=== PATIENT | female | born 1985 | race Caucasian/White ===

== ENCOUNTER 2017-02-04 02:00 | Inpatient (IN) | payer BC ==
[2017-02-04] MEDS ORDERED: OXYTOCIN 10 UNIT/ML 1 ML VIAL IM PRN (03:22)
[2017-02-04] MEDS ORDERED: LIDOCAINE 1% (PF) 10 MG/ML (30 ML SDV) SQ PRN (03:22)
[2017-02-04] MEDS ORDERED: TERBUTALINE 1 MG/ML VIAL SQ PRN (03:22)
[2017-02-04] MEDS ORDERED: METHYLERGONOVINE 0.2 MG/ML 1 ML AMP IM PRN (03:22)
[2017-02-04] MEDS ORDERED: CARBOPROST TROMETHAMINE 250 MCG/ML 1 ML AMP IM PRN (03:22)
[2017-02-04] MEDS: LACTATED RINGERS 1,000 ML IV SCH ×2 (03:38→04:07)
[2017-02-04 03:49] LABS: Basophils # (A) 0.1 k/uL (0-0.2); Basophils % (A) 0 %; CH 32.7; CHCM 35.9; Eosinophils # (A) 0.1 k/uL (0-0.7); Eosinophils % (A) 1 %; HCT 34.2 % (34.0-46.0); HDW 2.84; HGB 12.2 gm/dL (11.4-16.0); Large Platelets Flag Slight; Luc # (Auto) 0.18; Luc % (Auto) 1; Lymphocytes # (A) 1.3 k/uL (1.0-4.8); Lymphocytes % (A) 9 %; MCH 32.5 pg (25.0-35.0); MCHC 35.6 g/dL (31.0-37.0); MCV 91.4 fL (80.0-100.0); Mean Platelet Volume 11.1; Monocytes # (A) 0.7 k/uL (0-1.0); Monocytes % (A) 5 %; Neutrophils # (A) 12.4 k/uL (1.3-7.7); Neutrophils % (A) 84 %; RBC 3.74 m/uL (3.80-5.40); RDW 14.1 % (11.5-15.5); WBC 14.7 k/uL (3.8-10.6); WBC (Perox) 14.74
[2017-02-04 03:53] VITALS: BMI 20.5
[2017-02-04] MEDS ORDERED: BUPIVACAINE (PF) 0.25% 30 ML VIAL ONE (04:25)
[2017-02-04] MEDS ORDERED: fentaNYL (PF) 50 MCG/ML 5 ML AMP ONE (04:25)
[2017-02-04] MEDS ORDERED: SODIUM CHLORIDE 0.9% 100 ML BAG ONE (04:25)
--- NOTE | 2017-02-04 08:45 | P.HPOB ---
History of Present Illness H&P Date: 02/04/17 Chief Complaint: Strong, regular uterine contractions. This is a 31 -year-old white female 2 para 1001 EDC 02/18/2017 at 38 weeks gestation. Patient presented to labor and delivery through the night with strong, regular uterine contractions. Fetus is been active throughout the . She denies fluid leakage or vaginal bleeding. history is significant for blood type A-, rubella status immune. VDRL testing, hepatitis B surface antigen, HIV testing, urine culture, Pap smear, group B strep cultures all negative. One-hour Glucola 124. Estimated weight 30th percentile with recent sonogram. Past medical history is significant for kidney stones. Past surgical history significant for bilateral breast augmentation. Current medications vitamins daily. ALLERGIES none known. Social history patient is , she is a nonsmoker. She denies alcohol or drug use. On exam this is a pleasant white female, she is 5 foot 4 inches, 120 pounds, vital signs are stable and she is afebrile. The general physical exam is within normal limits. The abdomen is obviously gravid, infant is vertex to Giuseppe's maneuvers. Extremities reveal no edema. Cervix is 6 cm dilated, 70% effaced, -2 station, intact, vertex presentation. Artificial amniorrhexis reveals clear fluid. heart rate is consistent with reactive NST. Epidural is placed and working well. Impression: 38 week intrauterine , active spontaneous labor. Plan: Uterine contractions are approximately every 6 minutes apart. We will begin oxytocin augmentation. Continue close maternal and surveillance. Anticipate normal spontaneous vaginal delivery. Review of Systems Negative except as in HPI. Past Medical History Additional Past Medical History / Comment(s): kidney stones History of Any Multi-Drug Resistant Organisms: None Reported Additional Past Surgical History / Comment(s): breast implants Past Anesthesia/Blood Transfusion Reactions: No Reported Reaction Past Psychological History: No Psychological Hx Reported Smoking Status: Never smoker Past Alcohol Use History: None Reported Past Drug Use History: None Reported - Past Family History Father Family Medical History: No Reported History Medications and Allergies Home Medications Medication Instructions Recorded Confirmed Type Ferrous Sulfate [Iron] 325 mg PO 02/04/17 History Pnv,Calcium 72/Iron/Folic Acid 1 tab PO DAILY 02/04/17 02/04/17 History [ Plus Tablet] Allergies Allergy/AdvReac Type Severity Reaction Status Date / Time No Known Allergies Allergy Verified 02/04/17 02:03 Exam - Vital Signs Vital signs: Vital Signs Temp Pulse Resp BP Pulse Ox 02/04/17 03:47 97.7 F 101 H 18 126/75 98 02/04/17 02:11 97.7 F 101 H 18 126/75 98 Intake and Output 02/03/17 02/04/17 02/04/17 22:59 06:59 14:59 Other: Weight 54.431 kg Please see examination under HPI section. Results Result Diagrams: 02/04/17 03:35 Abnormal Lab Results - Last 24 Hours (Table) 02/04/17 Range/Units 03:35 WBC 14.7 H (3.8-10.6) k/uL RBC 3.74 L (3.80-5.40) m/uL Plt Count 128 L (150-450) k/uL Neutrophils # 12.4 H (1.3-7.7) k/uL Assessment and Plan Plan: Close maternal and surveillance. Oxytocin augmentation per hospital protocol. Anticipate normal spontaneous vaginal delivery. Time with Patient: Less than 30
[2017-02-04] MEDS ORDERED: WITCH HAZEL 1 EACH MED..PAD TOPICAL PRN (10:26)
[2017-02-04] MEDS ORDERED: LANOLIN CREAM 5 GM TUBE TOPICAL PRN (10:26)
[2017-02-04] MEDS ORDERED: Acetaminophen-Codeine 300-30mg TAB PO PRN (10:26)
[2017-02-04] MEDS ORDERED: diphenhydrAMINE 50 MG CAP PO PRN (10:26)
[2017-02-04] MEDS ORDERED: ACETAMINOPHEN TAB 325 MG TAB PO PRN (10:26)
[2017-02-04] MEDS ORDERED: diphenhydrAMINE 50 MG/ML 1 ML VIAL IVP PRN ×2 (10:26)
[2017-02-04] MEDS ORDERED: HYDROCORTISONE 2.5% RECTAL CREAM 30 GM TUBE RECTAL PRN (10:26)
[2017-02-04] MEDS ORDERED: ZOLPIDEM 5 MG TAB PO PRN (10:26)
[2017-02-04] MEDS ORDERED: BENZOCAINE/MENTHOL SPRAY 1 GM/SPRAY AEROSOL TOPICAL PRN (10:26)
[2017-02-04] MEDS ORDERED: diphenhydrAMINE 25 MG CAP PO PRN (10:26)
[2017-02-04] MEDS ORDERED: SIMETHICONE 80 MG CHEWABLE PO PRN (10:26)
[2017-02-04] MEDS ORDERED: diphenhydrAMINE ELIXIR 25 MG/10 ML CUP PO PRN (10:26)
--- NOTE | 2017-02-04 10:26 | P.PROBDLV ---
Vaginal Delivery Note - . Vaginal Delivery Note: t This is a 31-year-old 2 para 1001 EDC 02/18/2017 at 38 weeks gestation. Patient presented with strong regular contractions at home, judged to be in active spontaneous labor. was unremarkable, group B strep cultures negative, blood type A-, rubella status immune. Please see my dictated history and physical for details. Artificial amniorrhexis was performed and a small amount of oxytocin augmentation was given. Epidural was placed per her request. Patient progressed well through the first stage of labor and was judged to be completely dilated at 0940 hours. Excellent maternal expulsive efforts were noted. The perineal body was prepped and draped in usual sterile fashion. The infant's head delivered occiput anterior and baby restituted accordingly. There was a nuchal cord 1 that was reduced. The right or anterior shoulder was delivered then from underneath the pubic symphysis at which time the oropharynx, nasopharynx and external nares were all bulb suctioned on the perineal body. Patient was officially delivered of a liveborn male at 1010 hrs. Umbilical cord was doubly clamped and ligated, he was handed to waiting nurses for evaluation where scores of 9 and 9 at one and 5 minutes respectively were given. weighed 2985 g or 6 lbs. 9 oz. It was inspected and noted to be intact with trivascular cord at 1012 hrs. Uterus is then massaged. Hemostasis is excellent. Inspection of the cervix, vagina, perineum, periurethral and perirectal areas revealed no significant lacerations or defects. No sutures were deemed necessary. Fundus is firm and in the midline, symmetric and 18 week size upon completion of delivery. All sponge needle and enhancement counts are correct. Patient and her family are allowed to begin the bonding experience in the LDR. Please note that cord blood is obtained and sent to the lab for Rh- status. Patient and her are requesting circumcision further son. This will be held until after examination by harbor tug captain.
[2017-02-04] MEDS: IBUPROFEN 600 MG TAB PO PRN (15:56)
[2017-02-05 00:57] VITALS: TEMP 98.1
[2017-02-05] MEDS: SENNOSIDES-DOCUSATE SODIUM 1 EACH TAB PO SCH ×2 (00:58→08:18)
[2017-02-05] MEDS: LACTATED RINGERS 1,000 ML IV SCH (00:58)
[2017-02-05 08:14] VITALS: BP 110/69; PULSE 88; RESP 16
[2017-02-05] MEDS: IBUPROFEN 600 MG TAB PO PRN (08:18)
[2017-02-05] MEDS ORDERED: Rhogam IMMUNE GLOBULIN 1,500 UNIT/1 ML IM ONE (08:57)
--- NOTE | 2017-02-05 11:36 | P.DS ---
Providers Date of admission: 02/04/17 03:28 Expected date of discharge: 02/05/17 Attending physician: Angle Joshua Primary care physician: Stated None - Discharge Diagnosis(es) (1) 38 weeks gestation of Current Visit: Yes Status: Acute (2) Spontaneous onset of labor Current Visit: Yes Status: Acute (3) Normal spontaneous vaginal delivery Current Visit: Yes Status: Acute Hospital Course: This is a 31-year-old 2 now para 2 woman who presented at 38 weeks gestation in spontaneous active labor. Please see the admission history and physical for details. Following admission she had an unremarkable and rapid labor to deliver a liveborn male infant over an intact perineum. Apgars were 9 at 1 minute and 9 at 5 minutes and weight was 6 lbs. 9 oz. The patient's course was entirely unremarkable. By day #1 she had minimal lochia, was breast feeding successfully, her vital signs were stable and she was ambulating and voiding without difficulty. Infant circumcision was performed. She was discharged home on day #1 with routine instructions for care and follow-up. Patient Condition at Discharge: Good Plan - Discharge Summary New Discharge Prescriptions: No Action Pnv,Calcium 72/Iron/Folic Acid [ Plus Tablet] 1 tab PO DAILY Ferrous Sulfate [Iron] 325 mg PO Discharge Medication List Ferrous Sulfate [Iron] 325 mg PO 02/04/17 [History] Pnv,Calcium 72/Iron/Folic Acid [ Plus Tablet] 1 tab PO DAILY 02/04/17 [ History]
== END 2017-02-05 13:00 | disposition home or self-care (01) | DRG 775 ==
LOC: FBPOP 02:00 → 4FBP 03:28
PROVIDERS: ADMIT Obstetrics & Gynecology Obstetrics; ATTEND Obstetrics & Gynecology
PROC: 10E0XZZ Delivery of Products of Conception, External Approach (ICD-10-PCS; principal; 2017-02-04)
DX: O69.81X0 Labor and delivery complicated by cord around neck, without compression, not applicable or unspecified (principal); Z87.442 Personal history of urinary calculi; Z37.0 Single live birth; Z3A.38 38 weeks gestation of pregnancy
CPT/HCPCS: 59025; 85025; 85461; 88307; 99213

== ENCOUNTER → 2017-06-13 | Outpatient (CLI) | payer BC ==
--- NOTE | 2017-06-13 14:15 | MM ---
Reason for exam: clinical finding. Baseline mammogram. History: Retro-pectoral implants in both breasts, 2011. Taking hormonal contraceptives for 3 months. Indicated problem(s): lump or thickening in the left breast. Physical Findings: Nurse Summary: 0.5cm nodule in the left breast at 2 o'clock (nurse mj). MG 3D Diag Mammo Imp W/Cad LT ID view(s) were taken of the left breast. The breast tissue is extremely dense which could obscure a lesion on mammography. Very dense tissue are present throughout. Mole inferiorly and medially. Palpable marker upper outer quadrant. These results were verbally communicated with the patient and result sheet given to the patient on 06/13/17. ASSESSMENT: Suspicious, BI-RAD 4 RECOMMENDATION: Surgical consultation and ultrasound core biopsy of the left breast. Called Dr. Joshua with mammographic findings and has scheduled an appointment for the patient for 06/28/17 at 9:[address] Grijalva. Biopsy scheduled for 06/20/17 at 12:20. PRELIMINARY REPORT CALLED AND FAXED TO DR. GRIJALVA ON 06/13/17.
--- NOTE | 2017-06-13 14:16 | USB ---
Reason for exam: clinical finding. History: Retro-pectoral implants in both breasts, 2010. Taking hormonal contraceptives for 3 months. Indicated problem(s): lump or thickening in the left breast. US Breast LT Left breast ultrasound includes all four quadrants, the retroareolar region and axilla. Finding demonstrates a 1.3 x 1.3 x 0.6cm lobular, oval, hypoechoic lesion at 2 o'clock, corresponds to the palpable site. These results were verbally communicated with the patient and result sheet given to the patient on 06/13/17. ASSESSMENT: Incomplete: need additional imaging evaluation, BI-RAD 0 RECOMMENDATION: Special view mammogram of the left breast.
== END | disposition home or self-care (01) ==
LOC: RADMAMWWP 08:31
PROVIDERS: ATTEND Obstetrics & Gynecology
DX: N63.20 Unspecified lump in the left breast, unspecified quadrant (principal); N60.02 Solitary cyst of left breast; Z98.82 Breast implant status
CPT/HCPCS: 76641; G0206; G0279

== ENCOUNTER → 2017-06-20 | Day surgery (SDC) | payer BC ==
[2017-06-20 12:05] VITALS: RESP 16; BMI 16.1
[2017-06-20 13:50] VITALS: BP 121/82; PULSE 116; TEMP 97.9
--- NOTE | 2017-06-20 15:34 | USB ---
EXAMINATION TYPE: US biopsy breast VAD LT, Postbiopsy diagnostic mammo LT wo CAD DATE OF EXAM: 06/20/2017 CLINICAL HISTORY: 32-year-old female with a palpable left breast abnormality for one month. Patient i s 4 months and breast-fed for a short time. No family history of breast cancer. Patient wi th bilateral breast implants. TECHNIQUE: Ultrasound guided core biopsy of the left breast. COMPARISON: 06/13/2017 FINDINGS: The procedure of ultrasound guided core biopsy was explained to the patient. Benefits, alt ernatives, and risks were discussed. An informed consent was then obtained. Patient's blood pressure was normal but heart rate was elevated up to 140s BPM. After receiving oral sedation, heart rate decreased to the 110s BPM. Given normal blood pressure, decision was made to pro ceed. Patient has no history of tachycardia or arrhythmia. The patient was placed in supine positioning for imaging and for the procedure. The overlying skin w as prepped and draped in usual sterile fashion. Lidocaine was used as anesthetic into the skin and s ubcutaneous tissue up to area of concern in the left breast. Care was taken to protect the underlying implant. Under ultrasound guidance, a 13-gauge vacuum-assisted mammotome Elite biopsy gun device was used to o btain 5 core samples. A needle was passed through the lesion and the needle trough rotated to adequa tely sample the lesion. Following this, a rib and clip was left in lesion. The patient tolerated the procedure well without any immediate complication. The patient was kept in the radiology department for short stay after the procedure and then discharged home in stable condi tion. Postprocedure mammogram shows ribbon clip at the upper outer quadrant on a background of dense tissue s. IMPRESSION: Successful, uncomplicated ultrasound guided core biopsy of palpable left breast mass; possible fibroa denoma or lactating adenoma; full pathology results to follow.
== END ==
LOC: RADUSWWP 11:19
PROVIDERS: ATTEND Surgery
DX: N60.82 Other benign mammary dysplasias of left breast (principal); N60.22 Fibroadenosis of left breast; N60.12 Diffuse cystic mastopathy of left breast; Z98.82 Breast implant status
CPT/HCPCS: 88305; 19083; G0206; A4648; J2001